=== PATIENT | female | born 1970 | race Caucasian/White ===

== ENCOUNTER → 2018-04-25 | Outpatient (CLI) | payer OTHER ==
--- NOTE | 2018-04-25 20:46 | MR ---
EXAMINATION TYPE: MR cervical spine wo con DATE OF EXAM: 04/25/2018 COMPARISON: None HISTORY: Left shoulder pain into fingers TECHNIQUE: Multiplanar, multisequence images of the cervical spine were acquired. C2-C3: No evidence for degenerative disc disease. No disc bulge/herniation or protrusion. No Canal stenosis. Foramina are patent bilaterally. C3-C4: Small posterior disc bulge noted. There is minimal foraminal encroachment on the right greater than left. No central stenosis. C4-C5: Small posterior disc bulge causes slight anterior mass effect on the thecal sac. Hypertrophic changes results in minimal foraminal encroachment on the right. No significant central stenosis. C5-C6: Posterior extension endplate disc complex results in mild central canal stenosis. Lateral exte nsion endplate disc complex results in foraminal encroachment left greater than right. C6-C7: Right-sided foraminal encroachment is present due to lateral extension endplate disc complex. Minimal posterior disc bulge is eccentric towards the right as well, no significant central stenosis. Mild anterior mass effect on the thecal sac. C7-T1: No evidence for degenerative disc disease. No disc bulge/herniation or protrusion. No Canal stenosis. Foramina are patent bilaterally. Cervical segments are intact. There is normal alignment. Cervical spinal cord is of normal signal. Craniovertebral junction relationships are within normal limits. Cervical vertebral bodies show pre served height, minimal retrolisthesis grade 1 C5-6. There is loss of disc height signal C5-6 with alesha e endplate discogenic marrow signal change, spondylosis, similar changes to a lesser extent at C4-5, C3-4 and C6-7. 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 IMPRESSION: Degenerative disc disease greatest at C5-6, multilevel foraminal encroachment as described. Additiona l findings above.
== END | disposition home or self-care (01) ==
LOC: RADMRIMAIN 18:27 → MERGE 18:45
PROVIDERS: ATTEND Orthopaedic Surgery Sports Medicine
DX: M48.02 Spinal stenosis, cervical region (principal); M50.21 Other cervical disc displacement, high cervical region; M50.322 Other cervical disc degeneration at C5-C6 level; M47.812 Spondylosis without myelopathy or radiculopathy, cervical region
CPT/HCPCS: 72141